=== PATIENT | female | born 1935 | race Hispanic/Latino ===

== ENCOUNTER 2017-01-30 20:40 | Emergency (ER) | payer MEDICARE, OTHER ==
[~2017-01-30] VITALS: Ht 149.9 cm; Wt 45.0 kg
[~2017-01-30 20:40] MED LIST: AMLODIPINE10 MG; AMLODIPINE5 MG; AMLODIPINE5 MG PO; AVANDIA4 MG OR; AVELOX400 MG PO; BABY ASPIRIN81 MG OR; BL ADULT ASA81 MG PO; CALCITRIOL0.25 MCG OR; CALTRATE 600 OR; CARDIZEM30 MG PO; COZAAR100 MG OR; COZAAR50 MG OR; FOLIC ACID1 MG OR; HALDOL1 MG OR; IMDUR30 MG OR; LABETALOL100 MG OR; LABETALOL100 MG PO; LABETALOL200 MG OR; LASIX40 MG OR; LASIX80 MG OR; LISINOPRIL5 MG OR; LORAZEPAM0.5 MG OR; LORTAB 5 OR; METRONIDAZOL500 MG PO; NEPHRO-VIT1 OR; NEPHROCAPS OR; NORVASC10 MG OR; NORVASC5 MG OR; OMEPRAZOLE20 M1 PO; PANTOPRAZOLE SO40 MG PO; PAXIL10 MG OR; PREVACID30 M2 OR; PRILOSEC10 MG OR; PRILOSEC20 MG OR; RENAGEL 800MG800 MG PO; RENAL; RENAL CAP PO; RENVELA800 MG OR; RENVELA800 MG PO; RESTORIL15 M1 OR; ROBITUSSIN AC10 ML OR; SIMVASTATIN20 MG OR; TUMS500 MG; TYLENOL325 M1 PO; ULTRAM50 M1 PO; ZEMPLAR1 MCG; [UNRECOGNIZED DRUG - OTHER]; [UNRECOGNIZED DRUG - OTHER]
[2017-01-30] MEDS ORDERED: DILTIAZEM30 MG PO ×2 (20:55→20:56)
[2017-01-30] MEDS ORDERED: METOPROL TAR25 MG PO (21:16)
[2017-01-30] MEDS ORDERED: MILK OF MAG30 ML/UDC PO (21:18)
[2017-01-30] MEDS ORDERED: VENELEX EX (21:20)
[2017-01-30] MEDS ORDERED: ZOFRAN4 MG/TAB PO (21:21)
[2017-01-30 21:23] LABS: HEMATOCRIT 38.1 % (37.0-47.0); HEMOGLOBIN 12.2 g/dl (12.0-16.0); IMMATURE GRANULOCYTES 0.4 % (0.0-1.0); MEAN CELL VOLUME 98.2 fL CALC (80.0-100.0); MEAN CORPUSCULAR HGB 31.4 pG CALC (26.0-32.0); NEUT# 14.11 thou/uL (2.00-7.15); RED BLOOD COUNT 3.88 mill/uL (4.20-5.60); RED CELL DISTRI WIDTH 15.4 % (11.5-15.5)
[2017-01-30 21:27] LABS: URINE BLOOD DIPSTICK LARGE (NEGATIVE); URINE CLARITY TURBID; URINE COLOR BROWN; URINE GLUCOSE - DIPSTICK NEGATIVE (NEGATIVE); URINE KETONE NEGATIVE (NEGATIVE); URINE PH 7.5 (4.5-8.0); URINE PROTEIN - DIPSTICK >=300 mg/dL (NEG-TRACE); URINE SPECIFIC GRAVITY 1.025; URINE UROBILINOGEN - DIPSTICK 0.2 E.U./dL (0.2)
[2017-01-30 21:28] LABS: URINE BILIRUBIN - DIPSTICK NEGATIVE (NEGATIVE); URINE LEUK ESTERASE MODERATE (NEGATIVE); URINE NITRITE - DIPSTICK POSITIVE (Negative)
[2017-01-30 21:29] LABS: URINE RBC 25-50 RBC/hpf (0-5); URINE SQUAMOUS EPITHELIAL CELL FEW EPI/hpf (0-FEW); URINE WBC TNTC WBC/hpf (0-5)
[2017-01-30 21:30] LABS: URINE BACTERIA MANY hpf
[2017-01-30 21:35] LABS: ALBUMIN 3.5 g/dL (3.2-5.0); BILIRUBIN, TOTAL 1.7 mg/dL (0.0-1.4); CALCIUM 8.8 mg/dL (8.4-10.2); CREATININE 2.3 mg/dL (0.5-1.0); POTASSIUM 3.1 mmol/l (3.5-5.1); TOTAL PROTEIN 8.2 g/dL (6.3-8.2)
[2017-01-30 21:42] LABS: INFLUENZA A NONE DETECTED (NONE DETECT)
[2017-01-30 21:43] LABS: INFLUENZA B NONE DETECTED (NONE DETECT)
[2017-01-30 23:39] VITALS: BP 152/60
== END 2017-01-30 23:39 ==
LOC: ED 20:40
PROVIDERS: Emergency Medicine
DX: I50.9 Heart failure, unspecified (principal); J18.9 Pneumonia, unspecified organism; N39.0 Urinary tract infection, site not specified; R41.82 Altered mental status, unspecified; I48.91 Unspecified atrial fibrillation; R06.02 Shortness of breath; R05 Cough; R06.00 Dyspnea, unspecified; I12.0 Hypertensive chronic kidney disease with stage 5 chronic kidney disease or end stage renal disease; N18.6 End stage renal disease; Z99.2 Dependence on renal dialysis; R50.9 Fever, unspecified

== ENCOUNTER 2017-08-11 15:46 | Emergency (ER) | payer MEDICARE, OTHER ==
[~2017-08-11] VITALS: Ht 149.9 cm; Wt 40.0 kg
[~2017-08-11 15:46] MED LIST changes: +DILTIAZEM30 MG PO; +METOPROL TAR25 MG PO; +MILK OF MAG30 ML/UDC PO; +VENELEX EX; +ZOFRAN4 MG/TAB PO
[2017-08-11] MEDS ORDERED: METOPROL TAR25 MG PO (16:07)
[2017-08-11 16:49] LABS: HEMATOCRIT 38.2 % (37.0-47.0); IMMATURE GRANULOCYTES 0.3 % (0.0-1.0); MEAN CELL VOLUME 100.3 fL CALC (80.0-100.0); MEAN CORPUSCULAR HGB 31.5 pG CALC (26.0-32.0); MEAN CORPUSCULAR HGB CONC 31.4 g/L CALC (32.0-36.0); NEUT# 4.63 thou/uL (2.00-7.15); RED BLOOD COUNT 3.81 mill/uL (4.20-5.60); RED CELL DISTRI WIDTH 13.2 % (11.5-15.5)
[2017-08-11 17:08] LABS: ALBUMIN 3.5 g/dL (3.2-5.0); BILIRUBIN, TOTAL 1.2 mg/dL (0.0-1.4); CALCIUM 10.3 mg/dL (8.4-10.2); CREATININE 1.8 mg/dL (0.5-1.0); POTASSIUM 3.3 mmol/l (3.5-5.1)
[2017-08-11 20:40] VITALS: BP 170/73
== END 2017-08-11 20:40 | disposition short-term general hospital (02) ==
LOC: ED 15:46 → ED-I 16:00 → ED 16:00 → ED-I 17:16 → ED 20:40
PROVIDERS: Emergency Medicine
DX: R06.02 Shortness of breath (principal); E87.70 Fluid overload, unspecified; I48.91 Unspecified atrial fibrillation; I12.0 Hypertensive chronic kidney disease with stage 5 chronic kidney disease or end stage renal disease; N18.6 End stage renal disease; Z99.2 Dependence on renal dialysis